=== PATIENT | male | born 1935 | race Caucasian/White ===

== ENCOUNTER → 2018-08-25 | Outpatient (CLI) | payer MEDICARE ==
--- NOTE | 2018-08-25 12:25 | Diagnostic Imaging Report ---
PROCEDURE: CT head without contrast. TECHNIQUE: Multiple contiguous axial images were obtained through the brain without the use of intravenous contrast. Auto Exposure Controls were utilized during the CT exam to meet ALARA standards for radiation dose reduction. INDICATION: Dizziness FINDINGS: There is prominence of the ventricles and sulci. There is no hydrocephalus. There is no midline shift. There is no intracranial mass, hemorrhage or extra-axial fluid collection. The calvarium is intact. Sinuses and mastoid air cells are clear. IMPRESSION: Age-appropriate atrophy. No acute intracranial abnormality. Dictated by: Dictated on workstation # [id number]
== END ==
LOC: RAD FS 10:49
PROVIDERS: ATTEND Family Medicine
DX: G45.9 Transient cerebral ischemic attack, unspecified (principal); G31.9 Degenerative disease of nervous system, unspecified
CPT/HCPCS: 70450

== ENCOUNTER 2021-05-25 08:41 | Emergency (ER) | payer MEDICARE ==
[~2021-05-25] VITALS: Ht 175 cm; Wt 74.8 kg
[2021-05-25 09:11] LABS: BASOPHILS % (AUTO) 0 % (0-10); EOSINOPHILS % (AUTO) 0 % (0-10); HEMATOCRIT 38 % (40-54); HEMOGLOBIN 12.9 g/dL (13.3-17.7); LYMPHOCYTES # (AUTO) 0.7 X 10^3 (1.0-4.0); LYMPHOCYTES % (AUTO) 9 % (12-44); MEAN CORPUSCULAR HEMOGLOBIN 32 pg (25-34); MEAN CORPUSCULAR HGB CONC 34 g/dL (32-36); MEAN CORPUSCULAR VOLUME 94 fL (80-99); MEAN PLATELET VOLUME 10.6 fL (9.0-12.2); MONOCYTES % (AUTO) 14 % (0-12); NEUTROPHILS # (AUTO) 5.3 X 10^3 (1.8-7.8); NEUTROPHILS % (AUTO) 76 % (42-75); PLATELET COUNT 202 10^3/uL (130-400)
--- NOTE | 2021-05-25 09:23 | Diagnostic Imaging Report ---
Portable erect AP chest at 911h. INDICATION: Generalized weakness, shortness of breath There are no prior studies available for comparison. 2 AP views were obtained. The heart size is within normal limits. The lungs are generally clear. There is no sign of failure, pneumonia or a pleural effusion to indicate an acute abnormality. The mediastinum is not widened. The osseous structures are intact. External cardiac monitoring electrodes are noted. IMPRESSION: There is no evidence for an acute cardiopulmonary abnormality. Dictated by: Dictated on workstation # [id number]
[2021-05-25 09:29] LABS: BUN/CREATININE RATIO 14; CARBON DIOXIDE 23 MMOL/L (21-32); CHLORIDE 101 MMOL/L (98-107); CREATININE SERUM 0.97 MG/DL (0.60-1.30); GFR ESTIMATED 73; GLUCOSE 104 MG/DL (70-105); MAGNESIUM 1.7 MG/DL (1.6-2.4); POTASSIUM 3.8 MMOL/L (3.6-5.0); SODIUM 137 MMOL/L (135-145)
[2021-05-25 09:30] LABS: ALANINE AMINOTRANSFERASE 27 U/L (0-55); ALBUMIN 4.1 GM/DL (3.2-4.5); ALKALINE PHOSPHATASE 89 U/L (40-136); BILIRUBIN,TOTAL 0.3 MG/DL (0.1-1.0); TOTAL PROTEIN 6.7 GM/DL (6.4-8.2)
--- NOTE | 2021-05-25 09:54 | ED General ---
General Chief Complaint: General Problems/Pain Stated Complaint: GEN WEAKNESS Nursing Triage Note: Patient presents to the ED with c/o generalized weakness x3 days. He reports that he got up this morning around 5am to use the restroom and fell and his friend found him when he came to check on him this morning. He does state that he has been having trouble sleeping and has been taking nyquil as a sleep aid. Source of Information: Patient History of Present Illness Date Seen by Provider: May 25, 2021 Time Seen by Provider: 09:30 Initial Comments Patient is an 85-year-old male who presents with generalized weakness x3 days. Patient states he woke up this morning around 5 AM to use the restroom and fell. He was found this morning when a friend came to check on him this morning. He was unable to get up off the floor. States he has difficulty sleeping which is contributing to his weakness. Patient denies injury or pain complaint. Specifically denies headache, neck pain, chest pain palpitation shortness of breath, and extremities. He does not recall any acute symptoms prior to his fal l. No recent illnesses. No urinary frequency urgency or dysuria. No fever chills or sweats. No cough, sore throat. No other acute symptoms or complaints. Patient lives by himself. Timing/Duration: 3-4 Days Severity: Moderate Modifying Factors: improves with Other Associated Systoms: Other Allergies and Home Medications Allergies Coded Allergies: Sulfa (Sulfonamide Antibiotics) (Verified Allergy, Unknown, 05/25/21) Patient Home Medication List Home Medication List Reviewed: Yes Review of Systems Review of Systems Constitutional: see HPI EENTM: see HPI Respiratory: see HPI Cardiovascular: see HPI Gastrointestinal: see HPI Genitourinary: see HPI Musculoskeletal: see HPI Skin: see HPI Psychiatric/Neurological: See HPI Hematologic/Lymphatic: See HPI Immunological/Allergic: see HPI All Other Systems Reviewed Negative Unless Noted: Yes Past [place]-Svwyza-Xdylkh Hx Patient Social History Tobacco Use?: Yes Use of E-Cig and/or Vaping dev: No Substance use?: No Alcohol Use?: No Pt feels they are or have been: No Immunizations Up To Date Influenza Vaccine Up-to-Date: No; Not Current First/Initial COVID19 Vaccinat: Not currently vaccinated Past Medical History Surgery/Hospitalization HX: HTN; BPH; Hypothyroidism Physical Exam Vital Signs Vital Signs - First Documented 05/25/21 08:41 Temp 36.8 Pulse 69 Resp 14 B/P (MAP) 164/85 (111) Pulse Ox 96 O2 Delivery Room Air Capillary Refill : Less Than 3 Seconds Height, Weight, BMI Height: '" Weight: lbs. oz. kg; 24.00 BMI Method: General Appearance: No Apparent Distress, WD/WN Eyes: Bilateral Eye Normal Inspection, Bilateral Eye PERRL, Bilateral Eye EOMI HEENT: PERRL/EOMI, Normal ENT Inspection, Pharynx Normal Neck: Full Range of Motion, Normal Inspection, Non Tender, Supple Respiratory: Chest Non Tender, Lungs Clear Cardiovascular: Regular Rate, Rhythm Gastrointestinal: Non Tender, Soft Back: Normal Inspection, No CVA Tenderness Extremity: No Calf Tenderness Neurologic/Psychiatric: Alert, Oriented x3, Normal Mood/Affect Focused Exam Sepsis Stage: Ruled Out Progress/Results/Core Measures Suspected Sepsis SIRS Temperature: Pulse: 69 Respiratory Rate: 14 Laboratory Tests 05/25/21 09:02: White Blood Count 7.0 Blood Pressure 164 /85 Mean: 111 Laboratory Tests 05/25/21 09:02: Creatinine 0.97, Platelet Count 202, Total Bilirubin 0.3 Results/Orders Lab Results Laboratory Tests Test 05/25/21 09:02 05/25/21 10:35 Range/Units White Blood Count 7.0 4.3-11.0 10^3/uL Red Blood Count 4.04 L 4.30-5.52 10^6/uL Hemoglobin 12.9 L 13.3-17.7 g/dL Hematocrit 38 L 40-54 % Mean Corpuscular Volume 94 80-99 fL Mean Corpuscular Hemoglobin 32 25-34 pg Mean Corpuscular Hemoglobin Concent 34 32-36 g/dL Red Cell Distribution Width 13.7 10.0-14.5 % Platelet Count 202 130-400 10^3/uL Mean Platelet Volume 10.6 9.0-12.2 fL Immature Granulocyte % (Auto) 0 % Neutrophils (%) (Auto) 76 H 42-75 % Lymphocytes (%) (Auto) 9 L 12-44 % Monocytes (%) (Auto) 14 H 0-12 % Eosinophils (%) (Auto) 0 0-10 % Basophils (%) (Auto) 0 0-10 % Neutrophils # (Auto) 5.3 1.8-7.8 X 10^3 Lymphocytes # (Auto) 0.7 L 1.0-4.0 X 10^3 Monocytes # (Auto) 1.0 0.0-1.0 X 10^3 Eosinophils # (Auto) 0.0 0.0-0.3 10^3/uL Basophils # (Auto) 0.0 0.0-0.1 10^3/uL Immature Granulocyte # (Auto) 0.0 0.0-0.1 10^3/uL Sodium Level 137 135-145 MMOL/L Potassium Level 3.8 3.6-5.0 MMOL/L Chloride Level 101 98-107 MMOL/L Carbon Dioxide Level 23 21-32 MMOL/L Anion Gap 13 5-14 MMOL/L Blood Urea Nitrogen 14 7-18 MG/DL Creatinine 0.97 0.60-1.30 MG/DL Estimat Glomerular Filtration Rate 73 BUN/Creatinine Ratio 14 Glucose Level 104 70-105 MG/DL Calcium Level 9.0 8.5-10.1 MG/DL Corrected Calcium 8.9 8.5-10.1 MG/DL Magnesium Level 1.7 1.6-2.4 MG/DL Total Bilirubin 0.3 0.1-1.0 MG/DL Aspartate Amino Transf (AST/SGOT) 41 H 5-34 U/L Alanine Aminotransferase (ALT/SGPT) 27 0-55 U/L Alkaline Phosphatase 89 40-136 U/L Troponin I < 0.30 <0.30 NG/ML Total Protein 6.7 6.4-8.2 GM/DL Albumin 4.1 3.2-4.5 GM/DL Urine Color YELLOW Urine Clarity CLEAR Urine pH 6.0 5-9 Urine Specific [place] 1.020 1.016-1.022 Urine Protein TRACE H NEGATIVE Urine Glucose (UA) NEGATIVE NEGATIVE Urine Ketones NEGATIVE NEGATIVE Urine Nitrite NEGATIVE NEGATIVE Urine Bilirubin NEGATIVE NEGATIVE Urine Urobilinogen 0.2 < = 1.0 MG/DL Urine Leukocyte Esterase NEGATIVE NEGATIVE Urine RBC (Auto) 1+ H NEGATIVE Urine RBC 5-10 H /HPF Urine WBC NONE /HPF Urine Squamous Epithelial Cells NONE /HPF Urine Crystals NONE /LPF Urine Bacteria TRACE /HPF Urine Casts PRESENT /LPF Urine Hyaline Casts 0-2 H /LPF Urine Mucus LARGE H /LPF Urine Culture Indicated NO My Orders Krysten - MYLES CRUZ DO Cbc With Automated Diff (05/25/21 08:59) Comprehensive Metabolic Panel (05/25/21 08:59) Ua Culture If Indicated (05/25/21 08:59) Chest 1 View Ap/Pa Only (05/25/21 08:59) Magnesium (05/25/21 08:59) Troponin I [place] (05/25/21 08:59) Ekg Tracing (05/25/21 08:51) Ed Iv/Invasive Line Start (05/25/21 09:15) Covid 19 Inhouse Test (05/25/21 11:23) Isolation Central Supply Req (05/25/21 11:23) Vital Signs/I&O 05/25/21 08:41 Temp 36.8 Pulse 69 Resp 14 B/P (MAP) 164/85 (111) Pulse Ox 96 O2 Delivery Room Air Capillary Refill : Less Than 3 Seconds Blood Pressure Mean: 111 Departure Communication (Admissions) Chest x-ray: No acute cardiopulmonary disease. Lab work reviewed, reassuring. Patient is able to stand and ambulate with the steady gait with assistance of walker but is weak and unstable upon attempting to sit down on his own. There is no obvious hard attributable cause of his weakness. Patient refused Covid and influe swabbing. He does not have any focal neurologic deficits. Will prescribe a walker with instructions to follow-up with PCP. Home safety instructions reviewed. Impression Primary Impression: Generalized weakness Disposition: 01 HOME, SELF-CARE Condition: Stable Departure-Patient Inst. Decision time for Depature: 11:37 Referrals: SELF,CATIE LUI (PCP/Family) Primary Care Physician Patient Instructions: Generalized Weakness (DC) Add. Discharge Instructions: Please use walker and be careful when transitioning from standing to sitting as you are at increased risk of fall or injury. Follow-up with your PCP for reevaluation. Do not take NyQuil for sleep. You may use melatonin or valerian root. If you develop new or worsening symptoms, return to the emergency department. All discharge instructions reviewed with patient and/or family. Voiced understanding. MYLES CRUZ DO May 25, 2021 09:54
[2021-05-25 10:44] LABS: BILIRUBIN,URINE NEGATIVE (NEGATIVE); CLARITY,URINE CLEAR; COLOR,URINE YELLOW; GLUCOSE, URINE (UA) NEGATIVE (NEGATIVE); KETONES,URINE NEGATIVE (NEGATIVE); NITRITE,URINE NEGATIVE (NEGATIVE); PROTEIN,URINE TRACE (NEGATIVE)
[2021-05-25 10:45] LABS: BACTERIA,URINE TRACE /HPF; HYALINE CASTS, URINE 0-2 /LPF; LEUKOCYTE ESTERASE ,URINE NEGATIVE (NEGATIVE)
[2021-05-25 11:45] VITALS: BP 170/70
== END 2021-05-25 11:41 | disposition home or self-care (01) ==
LOC: EDUNIT# 08:41 → ER FS 08:42
DX: R53.1 Weakness (principal); I10 Essential (primary) hypertension; Z72.0 Tobacco use
CPT/HCPCS: 36415; 71045; 80053; 81000; 83735; 84484; 85025; 93005

== ENCOUNTER 2022-06-08 10:30 | Emergency (ER) | payer MEDICARE ==
--- NOTE | 2022-06-08 10:39 | ED Respiratory ---
General Stated Complaint: SOB History of Present Illness Date Seen by Provider: Jun 08, 2022 Time Seen by Provider: 10:38 Initial Comments 86-year-old male with PMH of CAD/MT approximately 15 years ago/COPD/HTN/ ex- smoker, is here with complaints of increasing shortness of breath for the last 1 to 3 weeks. Patient had a pulmonary function test done at [place] about 3 weeks ago and patient states that his shortness of breath has been worsening since then. Patient was given a prescription for an inhaler and he used a 30-day s upply in the span of 1 week. Patient states that he is unsure if he is using his inhaler properly but has not been able to reach anyone for further instructions. Patient's shortness of breath worsens when he walks short distances, but he denies shortness of breath at rest. Denies fever, cough, sore throat, chest pain, abdominal pain, diarrhea. Allergies and Home Medications Allergies Coded Allergies: Sulfa (Sulfonamide Antibiotics) (Verified Allergy, Unknown, 05/25/21) Patient Home Medication List Home Medication List Reviewed: Yes Review of Systems Review of Systems Constitutional: no symptoms reported EENTM: no symptoms reported Respiratory: dyspnea on exertion, short of breath, wheezing Cardiovascular: no symptoms reported Gastrointestinal: no symptoms reported Genitourinary: no symptoms reported Musculoskeletal: no symptoms reported Skin: no symptoms reported Psychiatric/Neurological: No Symptoms Reported Hematologic/Lymphatic: No Symptoms Reported Immunological/Allergic: no symptoms reported Past Klufhkn-Qusrze-Wjaqnf Hx Immunizations Up To Date First/Initial COVID19 Vaccinat: Not currently vaccinated Past Medical History Surgery/Hospitalization HX: HTN; BPH; Hypothyroidism Physical Exam Vital Signs - First Documented 06/08/22 10:35 Temp 36.3 Pulse 82 Resp 16 B/P (MAP) 129/68 (88) Pulse Ox 98 O2 Delivery Room Air Capillary Refill : Height: '" Weight: lbs. oz. kg; 24.00 BMI Method: General Appearance: WD/WN, no apparent distress (Patient is able to speak in clear sentences during exam and history) HEENT: PERRL/EOMI, normal ENT inspection, TMs normal, pharynx normal Neck: non-tender, full range of motion Respiratory: chest non-tender, lungs clear (No wheezing, rhonchi, or rales. Patient is speaking in clear sentences without any difficulty), normal breath sounds, no respiratory distress, no accessory muscle use Cardiovascular: regular rate, rhythm, no edema Gastrointestinal: normal bowel sounds, non tender, soft Neurologic/Psychiatric: alert, normal mood/affect, oriented x 3 Skin: normal color Progress/Results/Core Measures Suspected Sepsis SIRS Temperature: Pulse: Respiratory Rate: Laboratory Tests 06/08/22 10:55: White Blood Count 9.4 Blood Pressure / Mean: Laboratory Tests 06/08/22 10:55: Creatinine 1.07, INR Comment 0.9, Platelet Count 334, Total Bilirubin 0.2 Results/Orders Lab Results Laboratory Tests Test 06/08/22 10:55 06/08/22 12:35 Range/Units White Blood Count 9.4 4.3-11.0 10^3/uL Red Blood Count 2.66 L 4.30-5.52 10^6/uL Hemoglobin 8.5 L 13.3-17.7 g/dL Hematocrit 26 L 40-54 % Mean Corpuscular Volume 98 80-99 fL Mean Corpuscular Hemoglobin 32 25-34 pg Mean Corpuscular Hemoglobin Concent 33 32-36 g/dL Red Cell Distribution Width 15.6 H 10.0-14.5 % Platelet Count 334 130-400 10^3/uL Mean Platelet Volume 10.5 9.0-12.2 fL Immature Granulocyte % (Auto) 1 % Neutrophils (%) (Auto) 84 H 42-75 % Lymphocytes (%) (Auto) 8 L 12-44 % Monocytes (%) (Auto) 6 0-12 % Eosinophils (%) (Auto) 2 0-10 % Basophils (%) (Auto) 0 0-10 % Neutrophils # (Auto) 7.8 1.8-7.8 10^3/uL Lymphocytes # (Auto) 0.7 L 1.0-4.0 10^3/uL Monocytes # (Auto) 0.5 0.0-1.0 10^3/uL Eosinophils # (Auto) 0.2 0.0-0.3 10^3/uL Basophils # (Auto) 0.0 0.0-0.1 10^3/uL Immature Granulocyte # (Auto) 0.1 0.0-0.1 10^3/uL Neutrophils % (Manual) 88 % Lymphocytes % (Manual) 5 % Monocytes % (Manual) 4 % Eosinophils % (Manual) 1 % Basophils % (Manual) 1 % Band Neutrophils 1 % Polychromasia SLIGHT Hypochromasia SLIGHT Anisocytosis SLIGHT Prothrombin Time 12.7 12.2-14.7 SEC INR Comment 0.9 0.8-1.4 Activated Partial Thromboplast Time 23 L 24-35 SEC D-Dimer 1.05 H 0.00-0.49 UG/ML Sodium Level 138 135-145 MMOL/L Potassium Level 4.4 3.6-5.0 MMOL/L Chloride Level 104 98-107 MMOL/L Carbon Dioxide Level 22 21-32 MMOL/L Anion Gap 12 5-14 MMOL/L Blood Urea Nitrogen 15 7-18 MG/DL Creatinine 1.07 0.60-1.30 MG/DL Estimat Glomerular Filtration Rate 67 BUN/Creatinine Ratio 14 Glucose Level 122 H 70-105 MG/DL Calcium Level 9.4 8.5-10.1 MG/DL Corrected Calcium 9.5 8.5-10.1 MG/DL Total Bilirubin 0.2 0.1-1.0 MG/DL Aspartate Amino Transf (AST/SGOT) 30 5-34 U/L Alanine Aminotransferase (ALT/SGPT) 38 0-55 U/L Alkaline Phosphatase 75 40-136 U/L Bedside Creatine Kinase MB <4.3 ng/mL Bedside Troponin I 0.13 H 0.09 H < or = 0.05 ng/mL Bedside B-Type Natriuretic Peptide 614 <=100 pg/mL Total Protein 6.3 L 6.4-8.2 GM/DL Albumin 3.9 3.2-4.5 GM/DL My Orders Orders - NHUNG CABALLERO MD Albuterol/Ipra Inhalation Soln (Duoneb I (06/08/22 10:45) Dexamethasone Injection (Decadron Inje (06/08/22 10:45) Svn Small Volume Nebulizer (06/08/22 10:39) Cbc With Automated Diff (06/08/22 10:50) Comprehensive Metabolic Panel (06/08/22 10:50) Fibrin Degradation Products (06/08/22 10:50) Procalcitonin (Pct) (06/08/22 10:50) Protime With Inr (06/08/22 10:50) Partial Thromboplastin Time (06/08/22 10:50) Chest 1 View Ap/Pa Only (06/08/22 10:51) Dexamethasone Injection (Decadron Inje (06/08/22 11:00) Ekg Tracing (06/08/22 11:04) Manual Differential (06/08/22 10:55) Ekg Tracing (06/08/22 12:24) Ct Angio Chest W (06/08/22 13:00) Iohexol Injection (Omnipaque 350 Mg/Ml 1 (06/08/22 13:15) Received Contrast (Hold Metformin- Contr (06/08/22 13:15) Ns (Ivpb) (Sodium Chloride 0.9% Ivpb Bag (06/08/22 13:15) Medications Given in ED Current Medications Medications Dose Ordered Sig/Estefania Route Start Time Stop Time Status Last Admin Dose Admin Albuterol/ Ipratropium 3 ml ONCE ONCE INH 06/08/22 10:45 06/08/22 10:46 DC 06/08/22 10:46 3 ML Dexamethasone Sodium Phosphate 10 mg ONCE ONCE IM 06/08/22 10:45 06/08/22 10:50 DC 06/08/22 10:46 10 MG Iohexol 100 ml ONCE ONCE IV 06/08/22 13:15 06/08/22 13:16 DC 06/08/22 13:08 100 ML Sodium Chloride 100 ml ONCE ONCE IV 06/08/22 13:15 06/08/22 13:16 DC 06/08/22 13:08 100 ML Vital Signs/I&O 06/08/22 10:35 Temp 36.3 Pulse 82 Resp 16 B/P (MAP) 129/68 (88) Pulse Ox 98 O2 Delivery Room Air Capillary Refill : Progress Note : Progress Note 1. COPD EXACERBATION: - CXR:stable COPD with emphysema - Labs: - EKG/ troponin x 2: non-ischemic. Machine to run troponin was broken so a different POC machine was used as per microbiological laboratory technician at [place]. Staff nurse spoke with reconciliation manager at [facility] who stated that critical values for troponin on the machine used here, is any value greater than 0.3. Pt's values were 0.13 and 0.09 respectively, done couple hours apart. - Duo Neb/ Solu-medrol iv in ER, with improvement in symptoms -Prescription given for albuterol and ipratropium inhalers, with instructions and demonstration on how to use it appropriately -Follow-up with PCP within the next 3 to 7 days, and 3 days of prednisone prescription -The patient was seen in the ED, and treated appropriately to presentation at a specific point in time. Patient is informed that there is a possibility that disease and illness can evolve and change in acuity rapidly or slowly after patient is discharged from the ER. Precautionary advice given to the patient for immediate return to ER if symptoms worsen or do not resolve, and to seek emergency care sooner rather than later. Pt also advised on the importance of PCP follow up and compliance with management and follow up plan with PCP and/or specialist, as this is part of the management plan. Pt verbally expressed understanding. -Patient was ruled out for acute coronary syndrome, PE, pneumonia, and any other acute respiratory illness 2. ELEVATED D-DIMER: - D-dimer is 1.05 - CTA CHEST: negative for PE Diagnostic Imaging Diagonstic Imaging: Xray Plain Films/CT/US/NM/MRI: chest Comments [facility], [place] NAME: ANITA FRANCO [facility] REC#: [id number] PT STATUS: REG ER : 1935 PHYSICIAN: NHUNG CABALLERO MD ADMIT DATE: 06/08/22/ER FS Draft Date of Exam:06/08/22 CT ANGIO CHEST W PROCEDURE: CT angiography of the chest with contrast. TECHNIQUE: Multiple contiguous axial images were obtained through the chest after uneventful bolus administration of intravenous contrast. 3D reconstructed CTA MIP acquisitions were also performed. Auto Exposure Controls were utilized during the CT exam to meet ALARA standards for radiation dose reduction. INDICATION: Shortness of breath with abnormal elevation of the D-dimer. COMPARISON: No priors. FINDINGS: The pulmonary arterial branches themselves are well opacified and widely patent. No filling defect. No PE. The atherosclerotic aorta is patent, nonaneurysmal, and nonacute. This patient has small nonloculated pleural effusions layering to a depth of 2 cm right and 1.5 cm left. There is centrilobular emphysema and some mild right basilar atelectasis. No suspicious lung mass. No thoracic adenopathy. There are some biapical areas of subpleural fibrosis. There is no lymphadenopathy. There is a small hiatal hernia. The visualized upper abdomen shows a low-density fat-containing left adrenal adenoma. IMPRESSION: Negative for PE or acute aortic disease. Severe COPD with small nonloculated pleural effusions. Dictated on workstation # [id number] Dict: 06/08/22 1325 Trans: 06/08/22 1329 [id number] Interpreted by: LEANDER WILLIAMSON Electronically signed by: [facility], [facility] [place], [place] NAME: ANITA FRANCO [facility] REC#: [id number] PT STATUS: REG ER : 1935 PHYSICIAN: NHUNG CABALLERO MD ADMIT DATE: 06/08/22/ER FS Draft Date of Exam:06/08/22 CHEST 1 VIEW AP/PA ONLY INDICATION: Shortness of breath. COMPARISON: 05/25/2021. FINDINGS: Air trapping and COPD with some suprahilar linear scarring noted as chronic findings. No consolidating pneumonia. No overt failure pattern, effusion, or pneumothorax. IMPRESSION: Stable chronic findings, unchanged from prior. Dictated on workstation # [id number] Dict: 06/08/22 1105 Trans: 06/08/22 1109 [id number] [id number] Interpreted by: LEANDER WILLIAMSON Electronically signed by: Departure Impression Primary Impression: COPD exacerbation Disposition: 01 HOME, SELF-CARE Condition: Improved Departure-Patient Inst. Referrals: CATIE LUBIN MD (PCP) Primary Care Physician Patient Instructions: Chronic Obstructive Pulmonary Disease (COPD), Including Emphysema, How to Use Your Metered Dose Inhaler (Adults), Oral Steroid Medicines, Risk Factors for COPD, COPD Diet Add. Discharge Instructions: -Prescription given for albuterol and ipratropium inhalers, with instructions and demonstration on how to use it appropriately -Follow-up with PCP within the next 3 to 7 days, and 3 days of prednisone prescription Scripts Ipratropium [place] (Atrovent Hfa) 17 Mcg/Actuation Aers 2 PUFF IH Q6H for 30 Days, #1 EA Prov: NHUNG CABALLERO MD 06/08/22 Albuterol Sulfate (VENTOLIN HFA) 1 Puff Puff 2 PUFF INH Q4H PRN for SHORTNESS OF BREATH for 30 Days, #1 EA 1 PUFF = 90 MCG Prov: NHUNG CABALLERO MD 06/08/22 Prednisone (Prednisone) 50 Mg Tab 50 MG PO DAILY for 3 Days, #3 TAB Prov: NHUNG CABALLERO MD 06/08/22 NHUNG CABALLERO MD Jun 08, 2022 10:39
[2022-06-08] MEDS ORDERED: RT-ALBUTEROL/IPRATROPIUM 3 ML (DUONEB) VIAL INH ONE (10:45)
[2022-06-08 11:02] LABS: BASOPHILS % (AUTO) 0 % (0-10); EOSINOPHILS # (AUTO) 0.2 10^3/uL (0.0-0.3); EOSINOPHILS % (AUTO) 2 % (0-10); HEMATOCRIT 26 % (40-54); HEMOGLOBIN 8.5 g/dL (13.3-17.7); LYMPHOCYTES # (AUTO) 0.7 10^3/uL (1.0-4.0); LYMPHOCYTES % (AUTO) 8 % (12-44); MEAN CORPUSCULAR HEMOGLOBIN 32 pg (25-34); MEAN CORPUSCULAR HGB CONC 33 g/dL (32-36); MEAN CORPUSCULAR VOLUME 98 fL (80-99); MEAN PLATELET VOLUME 10.5 fL (9.0-12.2); MONOCYTES # (AUTO) 0.5 10^3/uL (0.0-1.0); MONOCYTES % (AUTO) 6 % (0-12); NEUTROPHILS # (AUTO) 7.8 10^3/uL (1.8-7.8); NEUTROPHILS % (AUTO) 84 % (42-75); PLATELET COUNT 334 10^3/uL (130-400); WHITE BLOOD COUNT 9.4 10^3/uL (4.3-11.0)
--- NOTE | 2022-06-08 11:10 | Diagnostic Imaging Report ---
INDICATION: Shortness of breath. COMPARISON: 05/25/2021. FINDINGS: Air trapping and COPD with some suprahilar linear scarring noted as chronic findings. No consolidating pneumonia. No overt failure pattern, effusion, or pneumothorax. IMPRESSION: Stable chronic findings, unchanged from prior. Dictated by: Dictated on workstation # [id number]
[2022-06-08 11:31] LABS: BILIRUBIN,TOTAL 0.2 MG/DL (0.1-1.0); CALCIUM 9.4 MG/DL (8.5-10.1); CREATININE SERUM 1.07 MG/DL (0.60-1.30); POTASSIUM 4.4 MMOL/L (3.6-5.0)
[2022-06-08 11:32] LABS: ALBUMIN 3.9 GM/DL (3.2-4.5); TOTAL PROTEIN 6.3 GM/DL (6.4-8.2)
[2022-06-08 12:50] LABS: PROTHROMBIN TIME PATIENT 12.7 SEC (12.2-14.7)
[2022-06-08 12:51] LABS: INR 0.9 (0.8-1.4)
[2022-06-08 12:52] LABS: FIBRIN DEGRADATION PRODUCTS 1.05 UG/ML (0.00-0.49)
[2022-06-08 12:59] LABS: ANISOCYTOSIS SLIGHT; BAND NEUTROPHILS 1 %; BASOPHILS % (MANUAL) 1 %; EOSINOPHILS % (MANUAL) 1 %; HYPOCHROMASIA SLIGHT; LYMPHOCYTES % (MANUAL) 5 %; MONOCYTES % (MANUAL) 4 %; NEUTROPHILS % (MANUAL) 88 %; POLYCHROMASIA SLIGHT
[2022-06-08] MEDS ORDERED: HOLD METFORMIN - RECEIVED CONTRAST 20 ML VIAL IV SCH (13:15)
[2022-06-08] MEDS ORDERED: IOHEXOL 350 MG/ML 100 ML (OMNIPAQUE 350) VIAL IV ONE (13:15)
[2022-06-08] MEDS ORDERED: NS 100 ML (IVPB) BAG IV ONE (13:15)
--- NOTE | 2022-06-08 13:30 | Diagnostic Imaging Report ---
PROCEDURE: CT angiography of the chest with contrast. TECHNIQUE: Multiple contiguous axial images were obtained through the chest after uneventful bolus administration of intravenous contrast. 3D reconstructed CTA MIP acquisitions were also performed. Auto Exposure Controls were utilized during the CT exam to meet ALARA standards for radiation dose reduction. INDICATION: Shortness of breath with abnormal elevation of the D-dimer. COMPARISON: No priors. FINDINGS: The pulmonary arterial branches themselves are well opacified and widely patent. No filling defect. No PE. The atherosclerotic aorta is patent, nonaneurysmal, and nonacute. This patient has small nonloculated pleural effusions layering to a depth of 2 cm right and 1.5 cm left. There is centrilobular emphysema and some mild right basilar atelectasis. No suspicious lung mass. No thoracic adenopathy. There are some biapical areas of subpleural fibrosis. There is no lymphadenopathy. There is a small hiatal hernia. The visualized upper abdomen shows a low-density fat-containing left adrenal adenoma. IMPRESSION: Negative for PE or acute aortic disease. Severe COPD with small nonloculated pleural effusions. Dictated by: Dictated on workstation # [id number]
[2022-06-08] MEDS ORDERED: RT-ALBUINH INH (14:04)
[2022-06-08] MEDS ORDERED: PRD50T PO (14:04)
[2022-06-08] MEDS ORDERED: IPR14IN IH (14:04)
[2022-06-08] MEDS ORDERED: RT-ALBUTEROL HFA 8.5 GM INHALER IH ONE (14:11)
[2022-06-08 14:27] VITALS: BP 124/73
== END 2022-06-08 14:28 | disposition home or self-care (01) ==
LOC: EDUNIT# 10:30 → ER FS 10:36
DX: J44.1 Chronic obstructive pulmonary disease with (acute) exacerbation (principal); Z28.310 Unvaccinated for COVID-19
CPT/HCPCS: 36415; 71045; 71275; 80053; 82553; 83874; 83880; 84145; 84484; 85007; 85027; 85379; 85610; 85730; 93005; 94640; Q9967

== ENCOUNTER 2022-08-14 15:15 | Emergency (ER) | payer MEDICARE ==
[~2022-08-14] VITALS: Ht 177.8 cm; Wt 83.9 kg
[~2022-08-14 15:15] MED LIST: IPR14IN IH; PRD50T PO; RT-ALBUINH INH
[2022-08-14 15:24] VITALS: BP 158/65
--- NOTE | 2022-08-14 15:27 | ED Integumentary General ---
General Chief Complaint: Skin/Wound Problems Stated Complaint: LT ARM SKIN TEAR History of Present Illness Date Seen by Provider: Aug 14, 2022 Time Seen by Provider: 15:25 Initial Comments 87-year-old male with PMH of HTN/BPH, is here with complaints of tripping and falling in his shed and scraping his left upper arm against something when he fell. Patient has has upper arm with the skin peeled off posteriorly. Denies head strike, loss of consciousness, dizziness, blurry vision. Patient is able to move his arms without any difficulty. Patient only came because had a skin tear. Patient is not on a blood thinner except baby aspirin. Allergies and Home Medications Allergies Coded Allergies: Sulfa (Sulfonamide Antibiotics) (Verified Allergy, Unknown, 05/25/21) Patient Home Medication List Home Medication List Reviewed: Yes Albuterol Sulfate (Ventolin Hfa) 1 Puff Puff, 2 PUFF INH Q4H PRN for SHORTNESS OF BREATH Prescribed by: NHUNG CABALLERO MD on 06/08/22 1404 Ipratropium [place] (Atrovent Hfa) 17 Mcg/Actuation Aers, 2 PUFF IH Q6H Prescribed by: NHUNG CABALLERO MD on 06/08/22 140 Prednisone (Prednisone) 50 Mg Tab, 50 MG PO DAILY Prescribed by: NHUNG CABALLERO MD on 06/08/22 1404 Review of Systems Review of Systems Constitutional: no symptoms reported EENTM: no symptoms reported Respiratory: no symptoms reported Cardiovascular: no symptoms reported Gastrointestinal: no symptoms reported Genitourinary: no symptoms reported Musculoskeletal: no symptoms reported Skin: see HPI, other (Left upper arm skin tear) Psychiatric/Neurological: No Symptoms Reported Endocrine: No Symptoms Reported Hematologic/Lymphatic: No Symptoms Reported Past Ttwrxlu-Otwmcy-Lnkard Hx Patient Social History Tobacco Use?: No Substance use?: No Alcohol Use?: No Pt feels they are or have been: No Immunizations Up To Date First/Initial COVID19 Vaccinat: Not currently vaccinated Second COVID19 Vaccination Isaias: Not currently vaccinated Third COVID19 Vaccination Date: Not currently vaccinated Past Medical History Surgery/Hospitalization HX: HTN; BPH; Hypothyroidism Physical Exam Vital Signs Vital Signs - First Documented 08/14/22 15:24 Temp 36.1 Pulse 81 Resp 18 B/P (MAP) 158/65 (96) Pulse Ox 96 O2 Delivery Room Air Capillary Refill : General Appearance: WD/WN, no apparent distress HEENT: PERRL/EOMI Neck: non-tender, full range of motion, supple, normal inspection Respiratory: chest non-tender Extremities: normal range of motion, non-tender, other (No bony tenderness. N/V bundle intact. See skin notes for skin tear exam.) Neurologic/Psychiatric: heel seat trimmer II-XII nml as tested, no motor/sensory deficits, alert, normal mood/affect, oriented x 3 Skin: other (Left upper arm: Skin tear posteriorly, which measures 4 x 3 inch diameter with a very large skin flap that is torn in places. No foreign body seen in the wound. No active bleeding.) Skin Problem Location: upper extremities Progress/Results/Core Measures Results/Orders My Orders Orders - NHUNG CABALLERO MD Cephalexin Capsule (Keflex Capsule) (08/14/22 15:36) Dipht,Pertuss(Acell),Tet Adult (Boostrix (08/14/22 15:45) Vital Signs/I&O 08/14/22 15:24 Temp 36.1 Pulse 81 Resp 18 B/P (MAP) 158/65 (96) Pulse Ox 96 O2 Delivery Room Air Progress Progress Note : Progress Note 1. LEFT UPPER ARM SKIN TEAR: - Wound irrigated with NS and antibiotic ointment applied generously to wound with nonadhesive dressing and then roller gauze bandage. - Tdap given in ER - Keflex prescription given with first tab given in ER for prophylactic coverage due to large surface area of wound which occurred in a rays[place] shed - Wound care instructions given. - Advised daily wound care -Advised Tylenol as needed for pain -No need for x-rays at this time since patient has full range of movement without any difficulty and does not complain of any bone pain or disability. - Follow up with PCP in the next 5 to 7 days for follow up -The patient was seen in the ED, and treated appropriately to presentation at a specific point in time. Patient is informed that there is a possibility that disease and illness can evolve and change in acuity rapidly or slowly after patient is discharged from the ER. Precautionary advice given to the patient for immediate return to ER if symptoms worsen or do not resolve, and to seek emergency care sooner rather than later. Pt also advised on the importance of PCP follow up and compliance with management and follow up plan with PCP and/or specialist, as this is part of the management plan. Pt verbally expressed understanding. Departure Impression Primary Impression: Skin tear of left upper arm without complication Qualified Codes: S41.112A - Laceration without foreign body of left upper arm, initial encounter Disposition: HOME, SELF-CARE Condition: Improved Departure-Patient Inst. Referrals: SELF,CATIE LUI (PCP/Family) Primary Care Physician Patient Instructions: Wound Care, Skin Abrasions, Wound Care (DC) Add. Discharge Instructions: - Keflex prescription given with first tab given in ER for prophylactic coverage - Wound care instructions given. - Advised daily wound care -Advised Tylenol as needed for pain - Follow up with PCP in the next 5 to 7 days for follow up All discharge instructions reviewed with patient and/or family. Voiced understanding. Scripts Cephalexin (Cephalexin) 500 Mg Tablet 500 MG PO BID for 7 Days, #14 TAB Prov: NHUNG CABALLERO MD 08/14/22 NHUNG CABALLERO MD Aug 14, 2022 15:27
[2022-08-14] MEDS ORDERED: CEPHALEXIN 250 MG (KEFLEX) CAP PO STA (15:36)
[2022-08-14] MEDS ORDERED: CEPH500T PO (15:38)
[2022-08-14] MEDS ORDERED: TETANUS,DIPTH,PERTUSS P/F (BOOSTRIX) 0.5 ML VIAL IM ONE (15:45)
== END 2022-08-14 15:50 | disposition home or self-care (01) ==
LOC: EDUNIT# 15:15 → ER FS 15:16
DX: S41.112A Laceration without foreign body of left upper arm, initial encounter (principal); Z23 Encounter for immunization; Z88.2 Allergy status to sulfonamides; Z28.310 Unvaccinated for COVID-19; W01.0XXA Fall on same level from slipping, tripping and stumbling without subsequent striking against object, initial encounter
CPT/HCPCS: 90715

== ENCOUNTER 2023-04-16 18:08 | Emergency (ER) | payer MEDICARE ==
[~2023-04-16 18:08] MED LIST changes: +CEPH500T PO
[2023-04-16] MEDS ORDERED: amLODIPine 10 MG TABLET PO ONE (18:30)
[2023-04-16] MEDS ORDERED: AMLO-251 PO (18:35)
--- NOTE | 2023-04-16 18:35 | ED Cardiac General ---
History of Present Illness General Chief Complaint: Cardiac/General Problems Stated Complaint: ELEV BP Source: patient, family Exam Limitations: no limitations History of Present Illness Date Seen by Provider: Apr 16, 2023 Time Seen by Provider: 18:10 Initial Comments 87-year-old male with past medical history of hypertension coming in due to elevated blood pressure. He is on lisinopril 10 mg daily. His blood pressure has been elevated in the 200s for the past week. He saw his doctor 2 days ago and again yesterday for elevated blood pressure. He has been taking his blood pressure consistently throughout the day over and over. His primary care physician increased his lisinopril to 20 mg 2 days ago which he has been taking. He denies any symptoms at all and feels completely normal. Specifically he is not having any chest pain, shortness of breath, headache, vision changes, weakness, numbness, urinary symptoms, or any other concerns. They are doing an ultrasound in a couple days to check for renal artery stenosis. Allergies and Home Medications Allergies Coded Allergies: Sulfa (Sulfonamide Antibiotics) (Verified Allergy, Unknown, 05/25/21) Patient Home Medication List Home Medication List Reviewed: Yes Albuterol Sulfate (Ventolin Hfa) 1 Puff Puff, 2 PUFF INH Q4H PRN for SHORTNESS OF BREATH Prescribed by: NHUNG CABALLERO MD on 06/08/22 1404 Cephalexin (Cephalexin) 500 Mg Tablet, 500 MG PO BID Prescribed by: NHUNG CABALLERO MD on 08/14/22 1538 Ipratropium [place] (Atrovent Hfa) 17 Mcg/Actuation Aers, 2 PUFF IH Q6H Prescribed by: NHUNG CABALLERO MD on 06/08/22 1404 Prednisone (Prednisone) 50 Mg Tab, 50 MG PO DAILY Prescribed by: NHUNG CABALLERO MD on 06/08/22 1404 Review of Systems Review of Systems Constitutional: No fever EENTM: No Symptoms Reported Respiratory: No Symptoms Reported Cardiovascular: See HPI Gastrointestinal: No Symptoms Reported Genitourinary: No Symptoms Reported Musculoskeletal: no symptoms reported Skin: no symptoms reported Psychiatric/Neurological: No Symptoms Reported Endocrine: No Symptoms Reported Hematologic/Lymphatic: No Symptoms Reported Past Dvvbfcs-Jhgubt-Nfakjs Hx Patient Social History Tobacco Use?: Yes Tobacco type used: Cigarettes Smoking Status: Former Smoker Use of E-Cig and/or Vaping dev: No Substance use?: No Alcohol Use?: No Pt feels they are or have been: No Immunizations Up To Date First/Initial COVID19 Vaccinat: Not currently vaccinated Second COVID19 Vaccination Isaias: Not currently vaccinated Third COVID19 Vaccination Date: Not currently vaccinated Past Medical History Surgery/Hospitalization HX: HTN; BPH; Hypothyroidism Physical Exam Vital Signs Capillary Refill : Height, Weight, BMI Height: '" Weight: lbs. oz. kg; 26.00 BMI Method: General Appearance: No Apparent Distress, WD/WN HEENT: PERRL/EOMI, Normal ENT Inspection, Pharynx Normal Neck: Full Range of Motion, Normal Inspection, Non Tender, Supple Respiratory: Chest Non Tender, Lungs Clear, Normal Breath Sounds, No Accessory Muscle Use, No Respiratory Distress Cardiovascular: Regular Rate, Rhythm, No Edema, Normal Peripheral Pulses Gastrointestinal: Normal Bowel Sounds, Non Tender, Soft; No Distended, No Guarding Extremity: Normal Capillary Refill, Normal Inspection, Normal Range of Motion, Non Tender, No Calf Tenderness, No Pedal Edema Neurologic/Psychiatric: Alert, Oriented x3, No Motor/Sensory Deficits, Normal Mood/Affect, flamer sealer II-XII Norm as Tested, Other (Normal gait) Skin: Normal Color, Warm/Dry Progress/Results/Core Measures Results/Orders My Orders Orders - CHRIS HSU MD Amlodipine Tablet (Amlodipine Tablet) (04/16/23 18:30) Progress Progress Note : Progress Note 87-year-old male coming in for asymptomatic hypertension. His blood pressure is elevated here as it was at home. He is completely asymptomatic, exam is completely normal including comprehensive neuro exam. He is not showing any signs of hypertensive emergency. Despite this, his blood pressure is quite elevated, we will give him a dose of amlodipine here and will send a prescription. He should follow-up with his regular doctor to see if he would like to continue this, versus changing to a different medicine. He should follow-up with the ultrasound as scheduled for the evaluation for renal artery stenosis. Departure Impression Primary Impression: Asymptomatic hypertension Disposition: HOME, SELF-CARE Condition: Stable Departure-Patient Inst. Decision time for Depature: 18:40 Referrals: CATIE LUBIN MD (PCP) Primary Care Physician Patient Instructions: High Blood Pressure ED Add. Discharge Instructions: I will start you on another medicine called amlodipine. You can continue to take your blood pressure once daily and write that number down. Do not fixate on the number. Come back to the ER if you are having any chest pain, new shortness of breath, severe headache, weakness, numbness, vision changes, or urinary issues where you are no longer making urine. Otherwise, please follow back up with your regular doctor. Please be sure to follow-up and do the ultrasound of your kidneys as you stated was scheduled. Scripts Amlodipine Besylate (Amlodipine Besylate) 10 Mg Tablet 10 MG PO DAILY for 30 Days, #30 TAB Prov: CHRIS HSU MD 04/16/23 CHRIS HSU MD Apr 16, 2023 18:35
[2023-04-16 18:39] VITALS: BP 224/80
== END 2023-04-16 18:40 | disposition home or self-care (01) ==
LOC: EDUNIT# 18:08 → ER FS 18:09
DX: I10 Essential (primary) hypertension (principal); Z79.899 Other long term (current) drug therapy; Z87.891 Personal history of nicotine dependence
CPT/HCPCS: 99283